=== PATIENT | female | born 1965 | race Caucasian/White ===

== ENCOUNTER 2017-02-04 15:15 | Emergency (ER) | payer OTHER ==
[~2017-02-04] VITALS: Ht 182.9 cm; Wt 83.9 kg
[~2017-02-04 15:15] MED LIST: ALPR2TAB97 PO; FERR325T28 PO; LEVE1000 PO; LEVO150T8 PO; OXYC15TA2 PO; WARF2.5T47 PO
--- NOTE | 2017-02-04 15:59 | NUR ---
DR GORE AT THE BEDSIDE FOR EVAL AND EXAM.
[2017-02-04 16:19] LABS: CALCIUM 9.4 mg/dL (8.5-10.1); CREATININE 0.8 mg/dL (0.6-1.3); POTASSIUM 4.7 mmol/L (3.5-5.1)
[2017-02-04 16:20] LABS: BASOPHILS % (AUTO) 0.4 % (0.0-2.0); EOSINOPHILS # (AUTO) 0.3 K/uL (0.0-0.7); HEMATOCRIT 28.8 % (37.0-47.0); HEMOGLOBIN 9.6 g/dL (12.0-16.0); LYMPHOCYTES # (AUTO) 2.8 K/uL (0.8-4.8); MEAN CORPUSCULAR HEMOGLOBIN 25.9 uug (27.0-31.0); MEAN CORPUSCULAR HGB CONC 33 g/dL (32.0-37.0); MEAN CORPUSCULAR VOLUME 77.8 fL (81.0-99.0); MONOCYTES # (AUTO) 0.4 K/uL (0.1-1.30); MONOCYTES % (AUTO) 6.7 % (0.0-11.0); NEUTROPHILS # (AUTO) 3.1 K/uL (1.8-8.9); NEUTROPHILS % (AUTO) 45.9 % (38.5-71.5); PLATELET COUNT (AUTO) 315 K/uL (150-450); RED BLOOD CELL COUNT(AUTO) 3.71 MIL/uL (4.20-5.40); RED CELL DISTRIBUTION WIDTH 18.5 % (11.5-14.5); WHITE BLOOD COUNT (AUTO) 6.6 K/uL (4.0-11.2)
[2017-02-04 16:25] LABS: ALBUMIN 3.5 g/dL (3.4-5.0); BILIRUBIN,DIRECT 0.1 mg/dL (0.0-0.2); BILIRUBIN,TOTAL 0.3 mg/dL (0.2-1.0); TOTAL PROTEIN, SERUM 7.3 g/dL (6.4-8.2)
[2017-02-04 16:47] LABS: ACANTHOCYTES FEW; ANISOCYTOSIS 2+; OVALOCYTES 1+; TEAR DROP CELLS FEW
--- NOTE | 2017-02-04 16:59 | NUR ---
Patient discharged to home in stable conditon. Written and verbal after care instructions given. Patient verbalizes understanding of instructions.
[2017-02-04 17:00] VITALS: BP 115/55
== END 2017-02-04 17:00 | disposition home or self-care (01) ==
LOC: ER 15:17
DX: R60.0 Localized edema (principal); R10.9 Unspecified abdominal pain; F19.10 Other psychoactive substance abuse, uncomplicated; E03.9 Hypothyroidism, unspecified; Z88.8 Allergy status to other drugs, medicaments and biological substances; Z88.1 Allergy status to other antibiotic agents; Z79.01 Long term (current) use of anticoagulants
CPT/HCPCS: 36415; 83690; 85025; A4663

== ENCOUNTER 2017-04-19 14:33 | Emergency (ER) | payer OTHER ==
[~2017-04-19] VITALS: Ht 182.9 cm; Wt 85.3 kg
--- NOTE | 2017-04-19 14:54 | NUR ---
Pt has recent hx of sz onset, recent trauma to mouth and jaw; had dental x-rays taken 04/16 and thinks she got infection, swelling in left lower part of mouth, c/o 08/25 pain. No other complaints, minimal distress noted.
--- NOTE | 2017-04-19 15:23 | NUR ---
Gave pt d/c instructions, verbalized understanding.
== END 2017-04-19 15:27 | disposition home or self-care (01) ==
LOC: ER 14:33
DX: K13.79 Other lesions of oral mucosa (principal); F41.9 Anxiety disorder, unspecified; E03.9 Hypothyroidism, unspecified; F19.10 Other psychoactive substance abuse, uncomplicated; Z88.1 Allergy status to other antibiotic agents; Z88.8 Allergy status to other drugs, medicaments and biological substances
CPT/HCPCS: 99281; A4663

== ENCOUNTER 2017-05-20 19:09 | Emergency (ER) | payer OTHER ==
[~2017-05-20] VITALS: Ht 182.9 cm; Wt 79.4 kg
[2017-05-20] MEDS ORDERED: RIVA20TA PO (19:20)
--- NOTE | 2017-05-20 19:43 | NUR ---
Patient discharged to home in stable conditon. Written and verbal after care instructions given. Patient verbalizes understanding of instructions.
== END 2017-05-20 19:45 | disposition home or self-care (01) ==
LOC: ER 19:10
DX: F41.9 Anxiety disorder, unspecified (principal); L97.829 Non-pressure chronic ulcer of other part of left lower leg with unspecified severity; E03.9 Hypothyroidism, unspecified; G89.4 Chronic pain syndrome; F11.20 Opioid dependence, uncomplicated; F13.20 Sedative, hypnotic or anxiolytic dependence, uncomplicated; Z88.1 Allergy status to other antibiotic agents; Z79.01 Long term (current) use of anticoagulants
CPT/HCPCS: A4663

== ENCOUNTER 2017-05-26 20:05 | Emergency (ER) | payer OTHER ==
[~2017-05-26] VITALS: Ht 182.9 cm; Wt 86.2 kg
[~2017-05-26 20:05] MED LIST changes: +RIVA20TA PO; -WARF2.5T47 PO
[2017-05-26] MEDS ORDERED: FLUCONAZOLE 100 MG TABLET PO ONE (20:30)
--- NOTE | 2017-05-26 20:37 | NUR ---
Patient discharged to home in stable conditon. Written and verbal after care instructions given. Patient verbalizes understanding of instructions.
[2017-05-26] MEDS ORDERED: FLUCONAZOLE 100 MG TABLET ONE (20:38)
== END 2017-05-26 20:38 | disposition home or self-care (01) ==
LOC: ER 20:06
DX: S70.362A Insect bite (nonvenomous), left thigh, initial encounter (principal); L08.9 Local infection of the skin and subcutaneous tissue, unspecified; E03.9 Hypothyroidism, unspecified; F41.9 Anxiety disorder, unspecified; G62.9 Polyneuropathy, unspecified; Z79.01 Long term (current) use of anticoagulants; D64.9 Anemia, unspecified; Z88.8 Allergy status to other drugs, medicaments and biological substances; Z88.1 Allergy status to other antibiotic agents; Z88.7 Allergy status to serum and vaccine; W57.XXXA Bitten or stung by nonvenomous insect and other nonvenomous arthropods, initial encounter; Y93.89 Activity, other specified; Y92.89 Other specified places as the place of occurrence of the external cause; Y99.8 Other external cause status
CPT/HCPCS: A4663

== ENCOUNTER 2017-11-23 14:45 | Inpatient (IN) | payer OTHER ==
[~2017-11-23] VITALS: Ht 184.2 cm; Wt 83.9 kg
[2017-11-23] MEDS ORDERED: VANCOMYCIN IV 1,000 MG in IV DEXTROSE 5% 250 ML IV ONE (15:15)
[2017-11-23] MEDS ORDERED: VANCOMYCIN IV 200 ML ONE (15:37)
--- NOTE | 2017-11-23 15:38 | NUR ---
PT IS IN ROOM #2A. DR GO EVALUATED THE PT.
[2017-11-23 15:55] LABS: BASOPHILS % (AUTO) 0.9 % (0.0-2.0); EOSINOPHILS # (AUTO) 0.3 K/uL (0.0-0.7); EOSINOPHILS % (AUTO) 6.4 % (0.0-7.0); HEMATOCRIT 30.4 % (31.2-41.9); HEMOGLOBIN 9.8 g/dL (10.9-14.3); LYMPHOCYTES # (AUTO) 1.7 K/uL (20.0-40.0); LYMPHOCYTES % (AUTO) 40.5 % (20.5-51.5); MEAN CORPUSCULAR HEMOGLOBIN 25.9 uug (24.7-32.8); MEAN CORPUSCULAR HGB CONC 32 g/dL (32.3-35.6); MEAN CORPUSCULAR VOLUME 80.4 fL (75.5-95.3); MONOCYTES # (AUTO) 0.3 K/uL (2.0-10.0); MONOCYTES % (AUTO) 7.5 % (0.0-11.0); NEUTROPHILS # (AUTO) 1.8 K/uL (1.8-8.9); NEUTROPHILS % (AUTO) 44.7 % (38.5-71.5); PLATELET COUNT (AUTO) 293 K/uL (179-408); RED BLOOD CELL COUNT(AUTO) 3.78 MIL/uL (3.63-4.92); WHITE BLOOD COUNT (AUTO) 4.1 K/uL (3.8-11.8)
[2017-11-23 16:02] LABS: CREATININE 1.1 mg/dL (0.6-1.3); POTASSIUM 4.2 mmol/L (3.5-5.1)
[2017-11-23 16:09] LABS: BILIRUBIN,DIRECT 0.1 mg/dL (0.0-0.2); BILIRUBIN,TOTAL 0.3 mg/dL (0.2-1.0); TOTAL PROTEIN, SERUM 7.3 g/dL (6.4-8.2)
[2017-11-23] MEDS ORDERED: LEVE1000 PO (18:24)
[2017-11-23] MEDS ORDERED: OXYC20TA58 PO (18:24)
[2017-11-23] MEDS ORDERED: FERR324T PO (18:24)
--- NOTE | 2017-11-23 18:33 | NUR ---
REPORT WAS GIVEN TO RN M/S-REHAB.
--- NOTE | 2017-11-23 18:52 | NUR ---
PT WAS TRANSFERED TO ROOM #123A REHABILITATION UNIT.
[2017-11-23] MEDS ORDERED: ALPRAZOLAM 0.5 MG TABLET PO PRN (19:15)
[2017-11-23 20:00] VITALS: BP 116/78
--- NOTE | 2017-11-23 20:00 | NUR ---
Seen pt. during rounds, walking to her bathroom. Assisted patient to the bathroom, able to void without BM. Vital signs taken and recorded. Helped patient back to bed. Breathing even and nonlabored. IV on both arms, intact and no signs of any infiltration. Safety measures provided. Placed call light within.
[2017-11-23] MEDS: ENOXAPARIN SODIUM 40 MG/0.4 ML DISP.SYRIN SQ SCH ×2 (21:00→21:19)
--- NOTE | 2017-11-23 21:00 | NUR ---
Pt. refused the lovenox saying she just took her maintenance dose of Coumadin 5mg this 7am. She also complained that Xanax 1mg is not enough for her, she usually takes 2mg. JULIA Jameson made aware. JULIA Jameson also ordered BLE Ultrasound.
[2017-11-23] MEDS: LEVETIRACETAM 500 MG TABLET PO SCH (21:17)
[2017-11-23] MEDS: OXYCODONE HCL 5 MG TABLET PO PRN (21:50)
--- NOTE | 2017-11-23 22:13 | NUR ---
PHARMACY CLINICAL NOTES (VANCOMYCIN DOSING) S: 52 YO FEMALE W/ DX OF CELLULITIS. MD ORDERED VANCOMYCIN O: BUN/SCR 8/1.1; WBC 4.1, TEMP 98.6 DOSING WT 160LBS A/P: PT RECEIVED VANCOMYCIN 1GM IN ER @ 15: 15(CONSIDER 1ST DOSE); WILL CONTINUE WITH VANCOMYCIN 1GM Q12H. PREDICTED PEAK 36 AND TROUGH OF 18.7; WILL CONTINUE MONITORING THE RENAL FXN AND WILL ORDER A TROUGH PRIOR TO 4TH DOSE AND ADJUST THE DOSE NECESSARY
[2017-11-23] MEDS ORDERED: ONDANSETRON INJ 8 MG in IV NORMAL SALINE 50 ML IV PRN (22:45)
[2017-11-24] MEDS ORDERED: Z GUARD REMEDY PASTE 57 GM TUBE TOP PRN (01:00)
[2017-11-24] MEDS ORDERED: HYDROCODONE/APAP 5-325MG TABLET PO PRN (01:00)
[2017-11-24] MEDS ORDERED: ZOLPIDEM 5 MG TABLET PO PRN (01:00)
[2017-11-24] MEDS ORDERED: ONDANSETRON 4 MG/2 ML VIAL IV PRN (01:00)
[2017-11-24] MEDS ORDERED: MAGNESIUM HYDROXIDE 30 ML LIQUID UDC PO PRN (01:00)
[2017-11-24] MEDS ORDERED: ACETAMINOPHEN 325 MG TABLET PO PRN (01:00)
[2017-11-24] MEDS: VANCOMYCIN IV 1 G in PREMIXED 0 EACH IV SCH ×2 (02:56→15:06)
[2017-11-24] MEDS: ONDANSETRON 4 MG/2 ML VIAL IV PRN ×3 (03:03→19:56)
[2017-11-24] MEDS ORDERED: ONDANSETRON 4 MG/2 ML VIAL ONE (03:07)
[2017-11-24 07:00] VITALS: BP 113/71
[2017-11-24] MEDS: LEVOTHYROXINE SODIUM 150 MCG TABLET PO SCH (07:01)
[2017-11-24 08:53] LABS: BASOPHILS % (AUTO) 0.8 % (0.0-2.0); EOSINOPHILS # (AUTO) 0.3 K/uL (0.0-0.7); EOSINOPHILS % (AUTO) 5.9 % (0.0-7.0); HEMATOCRIT 29.2 % (31.2-41.9); HEMOGLOBIN 9.5 g/dL (10.9-14.3); LYMPHOCYTES # (AUTO) 2.5 K/uL (20.0-40.0); LYMPHOCYTES % (AUTO) 53.4 % (20.5-51.5); MEAN CORPUSCULAR HEMOGLOBIN 26.4 uug (24.7-32.8); MEAN CORPUSCULAR HGB CONC 33 g/dL (32.3-35.6); MEAN CORPUSCULAR VOLUME 80.7 fL (75.5-95.3); MONOCYTES # (AUTO) 0.4 K/uL (2.0-10.0); MONOCYTES % (AUTO) 8.3 % (0.0-11.0); NEUTROPHILS # (AUTO) 1.5 K/uL (1.8-8.9); NEUTROPHILS % (AUTO) 31.6 % (38.5-71.5); PLATELET COUNT (AUTO) 275 K/uL (179-408); RED BLOOD CELL COUNT(AUTO) 3.62 MIL/uL (3.63-4.92); WHITE BLOOD COUNT (AUTO) 4.7 K/uL (3.8-11.8)
[2017-11-24] MEDS: FERROUS GLUCONATE 324 MG TABLET PO SCH (09:26)
[2017-11-24 09:28] LABS: CREATININE 1.1 mg/dL (0.6-1.3); POTASSIUM 4.5 mmol/L (3.5-5.1)
[2017-11-24] MEDS: OXYCODONE HCL 5 MG TABLET PO PRN ×2 (09:35→18:34)
[2017-11-24] MEDS: LEVETIRACETAM 500 MG TABLET PO SCH ×2 (10:12→21:45)
--- NOTE | 2017-11-24 11:11 | NUR ---
SBAR report received, board updated. Pt awake, alert, and oriented. Pt assessed, reports pain 10/10 located to knees and legs, TID 15mg pain medication administered per orders. Pt compliant with other routine medications, but requesting Xanax for anxiety which is only list as PRN at HS. notified, awaiting new orders. Pt requests PT, INR, and TSH labs be drawn to monitor current values. MD notified for this as well. Will follow up. Pt bed locked, in lowest position, and bed alarm on. Personal items and call light placed within reach, Pt reminded to utilize to meet all needs. Will continue to monitor.
[2017-11-24] MEDS: ALPRAZOLAM 0.5 MG TABLET PO PRN ×2 (11:48→21:53)
[2017-11-24 12:33] LABS: THYROID STIMULATING HORMONE 3.191 mIU/mL (0.358-3.740)
[2017-11-24] MEDS: PIPERACILLIN/TAZOBACTAM/D5W 50 ML IV SCH ×3 (13:14→23:58)
--- NOTE | 2017-11-24 14:09 | NUR ---
PHARMACY CLINICAL NOTES (VANCOMYCIN DOSING) S: 52 YO FEMALE W/ DX OF CELLULITIS. MD ORDERED VANCOMYCIN O: BUN/SCR 10/1.1; WBC 4.7, TEMP 98.6 DOSING WT 160LBS A/P: CONTINUE WITH VANCOMYCIN 1GM Q12H. PREDICTED PEAK 36 AND TROUGH OF 18.7; WILL CONTINUE MONITORING THE RENAL FXN AND WILL ORDER A TROUGH PRIOR TO 4TH DOSE(ORDERED FOR TOMORROW AT 0230) AND ADJUST THE DOSE NECESSARY
--- NOTE | 2017-11-24 16:37 | NUR ---
Pt seen by , new orders received. Both of Pt IV sites no longer patent. New IV started on right hand with a #20 simon. IV site on left forearm removed with end intact. Pt teaching provided on collecting both stool sample and clean catch urine specimens. Will continue to monitor.
[2017-11-24] MEDS ORDERED: OXYCODONE/APAP 5-325 MG TABLET PO PRN (17:00)
--- NOTE | 2017-11-24 17:05 | NUR ---
Pt urine sample and occult stool samples collected and sent to lab.
[2017-11-24 17:36] LABS: *BILIRUBIN,URIN NEGATIVE (NEGATIVE); *BLOOD, URINE Trace-intact (NEGATIVE); *CLARITY,URINE CLEAR (CLEAR); *COLOR,URINE YELLOW (YELLOW); *KETONES,URINE NEGATIVE (NEGATIVE); *PROTEIN,URINE NEGATIVE (NEGATIVE); *UROBILINOGEN,URINE 0.2 E.U./dl (NORMAL); LEUKOCYTE ESTERASE ,URINE NEGATIVE (NEGATIVE); NITRITE, URINE NEGATIVE (NEGATIVE); PH,URINE 7.5 (5.0-8.0); UGLUCOSE NEGATIVE (NEGATIVE)
[2017-11-24 17:41] LABS: BACTERIA,URINE FEW /HPF (NONE SEEN); RBC,URINE 0-3 /HPF (0-3); SQUAMOUS EPITHELIAL CELL,UR FEW /HPF (NONE SEEN); WBC,URINE 0-3 /HPF (0-3)
[2017-11-24 17:50] LABS: *OCCULT BLOOD STOOL NEGATIVE (NEGATIVE)
[2017-11-24] MEDS ORDERED: OXYCODONE HCL 20 MG TAB.SR.12H PO SCH (18:00)
--- NOTE | 2017-11-24 18:43 | NUR ---
Pt sitting comfortably in bed, assisted to restroom, voided x1. Vanco antibiotic finishing, Zosyn to be hung following completion. Pt reports pain 9/10 Oxycodone 15mg administered per PRN orders. All safety and comfort needs met. Call light and personal items within reach. Will continue to monitor and endorse to oncoming cage shift manager.
--- NOTE | 2017-11-24 19:50 | NUR ---
Received patient in bed, awake and alert. vital signs taken and recorded. IV heplock on R arm intact, secured with transparent dressing and no s/s of infiltration. no acute distress noted. fall precautions maintained. call leon within reach. will monitor patient.
[2017-11-24 20:00] VITALS: BP 99/60
[2017-11-24] MEDS: ENOXAPARIN SODIUM 40 MG/0.4 ML DISP.SYRIN SQ SCH (21:00)
[2017-11-24] MEDS ORDERED: ALPRAZOLAM 0.5 MG TABLET PO PRN (21:00)
[2017-11-24] MEDS: OXYCODONE HCL 20 MG TAB.SR.12H PO SCH (21:47)
[2017-11-24] MEDS ORDERED: ALPRAZOLAM 0.5 MG TABLET ONE (22:05)
[2017-11-25 03:32] LABS: BASOPHILS % (AUTO) 0.6 % (0.0-2.0); EOSINOPHILS # (AUTO) 0.2 K/uL (0.0-0.7); EOSINOPHILS % (AUTO) 5.6 % (0.0-7.0); HEMATOCRIT 27.6 % (31.2-41.9); LYMPHOCYTES # (AUTO) 2.1 K/uL (20.0-40.0); LYMPHOCYTES % (AUTO) 49.7 % (20.5-51.5); MEAN CORPUSCULAR HEMOGLOBIN 26.4 uug (24.7-32.8); MEAN CORPUSCULAR HGB CONC 33 g/dL (32.3-35.6); MEAN CORPUSCULAR VOLUME 80.4 fL (75.5-95.3); MONOCYTES # (AUTO) 0.3 K/uL (2.0-10.0); MONOCYTES % (AUTO) 8.3 % (0.0-11.0); NEUTROPHILS # (AUTO) 1.5 K/uL (1.8-8.9); NEUTROPHILS % (AUTO) 35.8 % (38.5-71.5); PLATELET COUNT (AUTO) 279 K/uL (179-408); RED BLOOD CELL COUNT(AUTO) 3.43 MIL/uL (3.63-4.92); WHITE BLOOD COUNT (AUTO) 4.1 K/uL (3.8-11.8)
[2017-11-25 03:44] LABS: BILIRUBIN,TOTAL 0.3 mg/dL (0.2-1.0); CREATININE 1.1 mg/dL (0.6-1.3); MAGNESIUM 1.5 mg/dL (1.8-2.4); PHOSPHOROUS 3.8 mg/dL (2.5-4.9); POTASSIUM 4.2 mmol/L (3.5-5.1); TOTAL PROTEIN, SERUM 6.3 g/dL (6.4-8.2)
[2017-11-25 04:00] VITALS: BP 107/69
[2017-11-25] MEDS: VANCOMYCIN IV 1 G in PREMIXED 0 EACH IV SCH ×2 (04:15→16:45)
[2017-11-25] MEDS: ONDANSETRON 4 MG/2 ML VIAL IV PRN ×3 (04:16→22:18)
[2017-11-25] MEDS: PIPERACILLIN/TAZOBACTAM/D5W 50 ML IV SCH ×3 (06:15→18:18)
[2017-11-25] MEDS: LEVOTHYROXINE SODIUM 150 MCG TABLET PO SCH (06:18)
[2017-11-25] MEDS: PANTOPRAZOLE SODIUM 40 MG TABLET.DR PO SCH (06:18)
[2017-11-25 08:47] VITALS: BP 95/60
[2017-11-25] MEDS ORDERED: WARFARIN SODIUM 5 MG TABLET PO SCH ×3 (09:00→17:00)
[2017-11-25] MEDS: LEVETIRACETAM 500 MG TABLET PO SCH ×2 (09:46→21:06)
[2017-11-25] MEDS: FERROUS GLUCONATE 324 MG TABLET PO SCH (09:46)
[2017-11-25] MEDS: OXYCODONE HCL 20 MG TAB.SR.12H PO SCH ×2 (09:47→21:07)
[2017-11-25] MEDS ORDERED: PHYTONADIONE 10 MG/1 ML AMPUL SQ ONE (10:45)
[2017-11-25] MEDS: MAGNESIUM SULFATE/D5W 100 ML IV SCH ×2 (11:45→16:50)
--- NOTE | 2017-11-25 14:03 | NUR ---
PHARMACY CLINICAL NOTES (VANCOMYCIN DOSING) S: 52 YO FEMALE W/ DX OF CELLULITIS. O: BUN/SCR 12/1.1; WBC 4.1, TEMP 98.5 DOSING WT 160LBS A/P:TROUGH LEVEL WAS OBTAINED @ 0300 AM (INSTEAD OF 02:30)= 13.2. SINCE RENAL FXN AND ALL OTHER CLINICAL INDICATORS(WBC, TEMP) ARE STABLE WILL CONTINUE WITH THE SAME DOSE OF VANCO 1GM Q12H. WILL CONTINUE MONITORING AND ADJUST THE DOSE NECESSARY
[2017-11-25] MEDS: OXYCODONE HCL 5 MG TABLET PO PRN (17:27)
--- NOTE | 2017-11-25 19:30 | NUR ---
patient in bed, laying comfortably. Vital signs taken and recorded, WNL. Breathing even and nonlabored. IV on L FA, intact and no signs of any infiltration. Safety measures provided. Placed call light within. will monitor the patient.
[2017-11-25 20:00] VITALS: BP 109/74
--- NOTE | 2017-11-25 21:10 | NUR ---
Seen patient up from bed, standing at bedside. Instructed patient to go back to bed, for she might be out of balance but refused. She said she wanted to stand for while because she was in her bed laying and sitting for a long time today. Informed patient to use the walker for her safety but refused because she said she's not comfortable using it. Placed the bedside table closer to her so she can hang from the table while up from bed, agreed and said she's okay standing up. Stayed in the room for while making sure she's safe. Will continue to monitor the patient.
[2017-11-25] MEDS: ALPRAZOLAM 0.5 MG TABLET PO PRN (22:17)
[2017-11-26] MEDS: PIPERACILLIN/TAZOBACTAM/D5W 50 ML IV SCH ×4 (00:02→18:12)
[2017-11-26] MEDS: VANCOMYCIN IV 1 G in PREMIXED 0 EACH IV SCH ×2 (03:11→12:46)
[2017-11-26 04:00] VITALS: BP 112/81
[2017-11-26] MEDS: ONDANSETRON 4 MG/2 ML VIAL IV PRN (04:36)
[2017-11-26] MEDS: OXYCODONE HCL 5 MG TABLET PO PRN ×2 (04:48→15:32)
[2017-11-26] MEDS: LEVOTHYROXINE SODIUM 150 MCG TABLET PO SCH ×2 (06:27→09:10)
[2017-11-26] MEDS: PANTOPRAZOLE SODIUM 40 MG TABLET.DR PO SCH (06:27)
[2017-11-26 08:41] LABS: BASOPHILS % (AUTO) 0.7 % (0.0-2.0); EOSINOPHILS # (AUTO) 0.2 K/uL (0.0-0.7); EOSINOPHILS % (AUTO) 5.4 % (0.0-7.0); HEMATOCRIT 27.1 % (31.2-41.9); LYMPHOCYTES % (AUTO) 42.8 % (20.5-51.5); MEAN CORPUSCULAR HEMOGLOBIN 26.4 uug (24.7-32.8); MEAN CORPUSCULAR HGB CONC 33 g/dL (32.3-35.6); MEAN CORPUSCULAR VOLUME 79.7 fL (75.5-95.3); MONOCYTES # (AUTO) 0.4 K/uL (2.0-10.0); MONOCYTES % (AUTO) 8.6 % (0.0-11.0); NEUTROPHILS % (AUTO) 42.5 % (38.5-71.5); PLATELET COUNT (AUTO) 300 K/uL (179-408); WHITE BLOOD COUNT (AUTO) 4.6 K/uL (3.8-11.8)
[2017-11-26 08:48] VITALS: BP 121/83
[2017-11-26] MEDS: OXYCODONE HCL 20 MG TAB.SR.12H PO SCH ×2 (09:10→20:47)
[2017-11-26] MEDS: FERROUS GLUCONATE 324 MG TABLET PO SCH (09:10)
[2017-11-26 09:19] LABS: BILIRUBIN,TOTAL 0.4 mg/dL (0.2-1.0); CREATININE 1.2 mg/dL (0.6-1.3); MAGNESIUM 1.8 mg/dL (1.8-2.4); PHOSPHOROUS 4.2 mg/dL (2.5-4.9); POTASSIUM 3.6 mmol/L (3.5-5.1); TOTAL PROTEIN, SERUM 6.4 g/dL (6.4-8.2)
[2017-11-26] MEDS ORDERED: PNEUMOCOCCAL 23-VAL P-SAC VAC 0.5 ML VIAL IM ONE (09:45)
[2017-11-26] MEDS ORDERED: INFLUENZA VACCINE 2017-2018 0.5 ML DISP.SYRIN IM ONE (09:45)
--- NOTE | 2017-11-26 12:26 | NUR ---
PHARMACY CLINICAL NOTES (VANCOMYCIN DOSING) S: 52 YO FEMALE W/ DX OF CELLULITIS. O: BUN/SCR 12/1.1; WBC 4.6, TEMP 98.2 DOSING WT 160LBS TROUGH 13.2 11/25 @ 0300 (DRAWN LATE) A/P: RENAL FUNCTION STABLE, WILL CONTINUE WITH THE SAME DOSE OF VANCO 1GM Q12H. WILL CONTINUE MONITORING AND IF RENAL FUNCTION WERE TO CHANGE, ADJUST NEEDED. WILL FOLLOW
[2017-11-26] MEDS: LEVETIRACETAM 500 MG TABLET PO SCH ×2 (12:45→20:48)
[2017-11-26] MEDS ORDERED: POTASSIUM CHLORIDE 10 MEQ CAPSULE.SA PO SCH (15:00)
[2017-11-26] MEDS ORDERED: FUROSEMIDE 20 MG TABLET PO SCH (15:00)
[2017-11-26] MEDS: ALPRAZOLAM 0.5 MG TABLET PO PRN ×2 (15:49→20:47)
[2017-11-26] MEDS ORDERED: POTA10CA43 PO (16:01)
[2017-11-26] MEDS ORDERED: OXYC5TAB3 PO (16:01)
[2017-11-26] MEDS ORDERED: LEVE500T9 PO (16:01)
[2017-11-26] MEDS ORDERED: PIPE3.376 IV (16:01)
[2017-11-26] MEDS ORDERED: ONDA4TAB5 PO (16:01)
[2017-11-26] MEDS ORDERED: MAGN400O6 PO (16:01)
[2017-11-26] MEDS ORDERED: ALPR0.5T PO ×2 (16:01)
[2017-11-26] MEDS ORDERED: WARF2TAB57 PO (16:01)
[2017-11-26] MEDS ORDERED: ACET325T53 PO (16:01)
[2017-11-26] MEDS ORDERED: LEVO150T PO (16:01)
[2017-11-26] MEDS ORDERED: PANT40TA2 PO (16:01)
[2017-11-26] MEDS ORDERED: HYDR-3326 PO (16:01)
[2017-11-26] MEDS ORDERED: Oxycodone Sr PO (16:01)
[2017-11-26] MEDS ORDERED: RXVAN XX (16:01)
[2017-11-26] MEDS ORDERED: FURO20TA4 PO (16:01)
[2017-11-26] MEDS ORDERED: ZOLP5TAB8 PO (16:01)
[2017-11-26] MEDS ORDERED: FERR324T PO (16:01)
[2017-11-26] MEDS ORDERED: WARFARIN SODIUM 2 MG TABLET PO SCH (17:00)
--- NOTE | 2017-11-26 18:50 | NUR ---
D/C NOTE DISCHARGING TO [facility] [address] [facility] [address]. REPORT CALLED TO LUIS [phone]. SHE IS DUE FOR P/U AT 2029.
--- NOTE | 2017-11-26 21:10 | NUR ---
Patient discharged to [facility] at 2109 via [facility] ambulance service alert and oriented x 4 in no acute distress, vitals stable, belonging list done upon discharge and patient complained of losing one long sleeve black shirt with words written on it, anni's charge nurse and pathology supervisor both were informed of pt complaint of missing item. No belonging list found in chart on admission to verify item is missing. Patient upset and declined staff to take pictures of bilateral lower extremities. No wounds or redness noted, just +3 edema to both lower legs. Report given to electrifier operator Lev from [facility] ambulance service.
[2017-11-27] MEDS ORDERED: LEVOTHYROXINE SODIUM 150 MCG TABLET PO SCH (07:00)
== END 2017-11-26 21:10 | DRG 603 ==
LOC: ER 14:45 → MEDSURG1 18:42
PROVIDERS: ATTEND Nurse Practitioner Acute Care
DX: L03.116 Cellulitis of left lower limb (principal); D68.2 Hereditary deficiency of other clotting factors; E44.0 Moderate protein-calorie malnutrition; L03.115 Cellulitis of right lower limb; Z88.1 Allergy status to other antibiotic agents; Z88.8 Allergy status to other drugs, medicaments and biological substances; R60.0 Localized edema; G89.4 Chronic pain syndrome; D64.9 Anemia, unspecified; E03.9 Hypothyroidism, unspecified; K21.9 Gastro-esophageal reflux disease without esophagitis; G25.0 Essential tremor; E83.42 Hypomagnesemia; R09.89 Other specified symptoms and signs involving the circulatory and respiratory systems; Z68.24 Body mass index [BMI] 24.0-24.9, adult; Z86.718 Personal history of other venous thrombosis and embolism; Z79.01 Long term (current) use of anticoagulants; Z87.81 Personal history of (healed) traumatic fracture; F41.9 Anxiety disorder, unspecified; F32.9 Major depressive disorder, single episode, unspecified; G40.909 Epilepsy, unspecified, not intractable, without status epilepticus; M17.0 Bilateral primary osteoarthritis of knee; M25.462 Effusion, left knee; M25.461 Effusion, right knee; G62.9 Polyneuropathy, unspecified; R51 Headache
CPT/HCPCS: 36415; 71045; 73700; 83550; 83605; 83690; 83735; 84100; 84443; 85025; 85610; 85730; 87040; 87086; 93005; A4663; J1650; J2405; J2543; J3370; J3430; J3475; J3490; J7040; J7042; J7050

== ENCOUNTER 2017-12-10 12:44 | Inpatient (IN) | payer OTHER ==
[~2017-12-10] VITALS: Ht 185.4 cm; Wt 81.6 kg
[~2017-12-10 12:44] MED LIST changes: +ACET325T53 PO; +ALPR0.5T PO; -ALPR2TAB97 PO; +FERR324T PO; -FERR325T28 PO; +FURO20TA4 PO; +HYDR-3326 PO; -LEVE1000 PO; +LEVE500T9 PO; +LEVO150T PO; -LEVO150T8 PO; +MAGN400O6 PO; +ONDA4TAB5 PO; -OXYC15TA2 PO; +OXYC5TAB3 PO; +Oxycodone Sr PO; +PANT40TA2 PO; +PIPE3.376 IV; +POTA10CA43 PO; -RIVA20TA PO; +RXVAN XX; +WARF2TAB57 PO; +ZOLP5TAB8 PO
--- NOTE | 2017-12-10 13:10 | NUR ---
DR AKERS AT THE BEDSIDE FOR EVAL AND EXAM.
[2017-12-10] MEDS ORDERED: IV NORMAL SALINE 1000 ML BAG IV ONE (13:30)
[2017-12-10 14:28] LABS: BASOPHILS % (AUTO) 0.7 % (0.0-2.0); EOSINOPHILS % (AUTO) 1.3 % (0.0-7.0); HEMATOCRIT 29.7 % (31.2-41.9); HEMOGLOBIN 9.8 g/dL (10.9-14.3); LYMPHOCYTES # (AUTO) 1.2 K/uL (20.0-40.0); LYMPHOCYTES % (AUTO) 32.5 % (20.5-51.5); MEAN CORPUSCULAR HEMOGLOBIN 26.1 uug (24.7-32.8); MEAN CORPUSCULAR HGB CONC 33 g/dL (32.3-35.6); MEAN CORPUSCULAR VOLUME 79.4 fL (75.5-95.3); MONOCYTES # (AUTO) 0.3 K/uL (2.0-10.0); MONOCYTES % (AUTO) 8.4 % (0.0-11.0); NEUTROPHILS # (AUTO) 2.1 K/uL (1.8-8.9); NEUTROPHILS % (AUTO) 57.1 % (38.5-71.5); PLATELET COUNT (AUTO) 187 K/uL (179-408); RED BLOOD CELL COUNT(AUTO) 3.75 MIL/uL (3.63-4.92); WHITE BLOOD COUNT (AUTO) 3.7 K/uL (3.8-11.8)
[2017-12-10 14:38] LABS: POTASSIUM 3.5 mmol/L (3.5-5.1)
[2017-12-10 14:51] LABS: BILIRUBIN,DIRECT 0.1 mg/dL (0.0-0.2); BILIRUBIN,TOTAL 0.3 mg/dL (0.2-1.0); TOTAL PROTEIN, SERUM 6.8 g/dL (6.4-8.2)
[2017-12-10] MEDS ORDERED: LEVOFLOXACIN 750 MG/D5W 150 ML PIGGYBACK IV ONE (15:00)
[2017-12-10] MEDS ORDERED: PIPERACILLIN SODIUM/TAZOBACTAM 4.5 G in IV DEXTROSE 5% 50 ML IV SCH (15:00)
--- NOTE | 2017-12-10 15:08 | NUR ---
MRSA COLLECTED AND SENT TO LAB.
[2017-12-10] MEDS ORDERED: PIPERACILLIN/TAZO 4.5 GM VIAL IV ONE ×2 (15:20→23:06)
[2017-12-10] MEDS ORDERED: LEVOFLOXACIN 750MG/D5W 150 ML IV ONE (15:21)
--- NOTE | 2017-12-10 15:25 | NUR ---
ASSISST TO BEDSIDE COMMODE, URINE COLLECTED AND SENT TO LAB.
[2017-12-10] MEDS ORDERED: FERR324T PO (15:29)
[2017-12-10] MEDS ORDERED: OXYC20TA58 PO (15:29)
[2017-12-10] MEDS ORDERED: ALPR2TAB97 PO (15:29)
[2017-12-10] MEDS ORDERED: LEVE1000 PO (15:29)
[2017-12-10] MEDS ORDERED: LEVO150T8 PO (15:29)
[2017-12-10] MEDS ORDERED: WARF1TAB2 PO (15:29)
[2017-12-10] MEDS ORDERED: OXYC15TA2 PO (15:29)
[2017-12-10 15:37] LABS: *BILIRUBIN,URIN NEGATIVE (NEGATIVE); *BLOOD, URINE Trace-intact (NEGATIVE); *CLARITY,URINE CLEAR (CLEAR); *COLOR,URINE YELLOW (YELLOW); *KETONES,URINE NEGATIVE (NEGATIVE); *PROTEIN,URINE NEGATIVE (NEGATIVE); *UROBILINOGEN,URINE 0.2 E.U./dl (NORMAL); LEUKOCYTE ESTERASE ,URINE NEGATIVE (NEGATIVE); NITRITE, URINE NEGATIVE (NEGATIVE); PH,URINE 5.5 (5.0-8.0); UGLUCOSE NEGATIVE (NEGATIVE)
[2017-12-10 15:42] LABS: BACTERIA,URINE FEW /HPF (NONE SEEN); RBC,URINE 0-3 /HPF (0-3); SQUAMOUS EPITHELIAL CELL,UR FEW /HPF (NONE SEEN); WBC,URINE 0-3 /HPF (0-3)
--- NOTE | 2017-12-10 15:57 | NUR ---
PT ARRIVED FROM ER ON A GURNEY. PT CALM AND COOPERATIVE, AOX3, STABLE, A LITTLE LETHARGIC STATING " I AM A LITTLE TIRED". ROSITA CONTINUED FROM ER. IV INTACT AND WORKING AT THIS TIME. CONTINUE TO MONITOR.
[2017-12-10 16:33] VITALS: BP 93/44
--- NOTE | 2017-12-10 16:35 | NUR ---
PT IV INFILTRATED, NEW IV 22 GAUGE ON RIGHT WRIST, LEVAQUIN CONTINUED. CONTINUE TO MONITOR PT.
--- NOTE | 2017-12-10 19:30 | NUR ---
pt hyperverbal, irritable, no signs of respiratory distress, lethargic. continue to monitor pt. IV intact. pt agreeable with plan of care.
[2017-12-10 20:36] VITALS: BP 92/64
[2017-12-10] MEDS ORDERED: LACT10SO PO (20:56)
[2017-12-10] MEDS ORDERED: MAGN400O6 PO (20:56)
[2017-12-10] MEDS ORDERED: ACET-2154 PO (20:56)
[2017-12-10] MEDS ORDERED: PANT40TA2 PO (20:56)
[2017-12-10] MEDS ORDERED: ALPR1TAB7 PO (20:56)
[2017-12-10] MEDS ORDERED: GABA-534 PO (20:56)
[2017-12-10] MEDS ORDERED: HYDR-3326 PO (21:29)
[2017-12-10] MEDS ORDERED: HYDROCODONE/APAP 5-325MG TABLET PO PRN (22:15)
[2017-12-10] MEDS ORDERED: Medication Not On Formulary EA (Lactulose (Duphalac) 30 ML) PO PRN (22:15)
[2017-12-10] MEDS ORDERED: MAGNESIUM HYDROXIDE 30 ML LIQUID UDC PO PRN ×2 (22:15)
[2017-12-10] MEDS: GABAPENTIN 300 MG CAPSULE PO SCH (22:15)
[2017-12-10] MEDS ORDERED: ALPRAZOLAM PO SCH (22:15)
[2017-12-10] MEDS ORDERED: CEFTRIAXONE 1 G in IV DEXTROSE 5% 50 ML IV SCH (22:15)
[2017-12-10] MEDS ORDERED: WARFARIN SODIUM 3 MG TABLET PO ONE (22:45)
[2017-12-10] MEDS ORDERED: CEFTRIAXONE 1 G VIAL ONE (23:05)
[2017-12-10] MEDS: OXYCODONE HCL 20 MG TAB.SR.12H PO SCH (23:06)
[2017-12-10] MEDS ORDERED: GABAPENTIN 300 MG CAPSULE ONE (23:06)
[2017-12-10] MEDS ORDERED: OXYCODONE HCL 20 MG TAB.SR.12H PO ONE (23:07)
[2017-12-10] MEDS ORDERED: WARFARIN SODIUM 3 MG TABLET ONE (23:11)
--- NOTE | 2017-12-10 23:19 | NUR ---
Per MD order, administering 3 mg PO Coumadin, Lot [id number] expiration date of 08-16-2018 and Ceftriazone 1 gram [facility] [id number] IV in D5.
[2017-12-11 00:11] VITALS: BP 91/59
[2017-12-11 04:00] VITALS: BP 90/58
[2017-12-11] MEDS ORDERED: LACTULOSE 20 G/30 ML LIQUID UDC PO PRN (07:15)
[2017-12-11] MEDS: PANTOPRAZOLE SODIUM 40 MG TABLET.DR PO SCH (08:30)
[2017-12-11] MEDS: LEVOTHYROXINE SODIUM 150 MCG TABLET PO SCH (08:30)
[2017-12-11] MEDS: GABAPENTIN 300 MG CAPSULE PO SCH ×4 (08:31→17:00)
[2017-12-11] MEDS: LEVETIRACETAM 500 MG TABLET PO SCH ×2 (08:31→20:10)
[2017-12-11] MEDS: FERROUS GLUCONATE 324 MG TABLET PO SCH (08:31)
[2017-12-11] MEDS: OXYCODONE HCL 20 MG TAB.SR.12H PO SCH ×2 (08:33→20:09)
--- NOTE | 2017-12-11 08:43 | NUR ---
Client refused Neurontin. Offered three times and advice her on the risks and benefits but still refuses. Compliant with her other morning medications.
[2017-12-11] MEDS: ALPRAZOLAM 0.5 MG TABLET PO PRN ×2 (08:48→17:22)
--- NOTE | 2017-12-11 09:21 | NUR ---
Refused linens to be changed, stating not to touch her linens and doesn't see anything wrong with them
--- NOTE | 2017-12-11 09:24 | NUR ---
Physical Therapy consult taking place. Able to ambulate with no apparent signs and symptoms of discomfort, distress or SOB. Able to walk shelter down the hallway with the assistance of a walker and one PT.
[2017-12-11] MEDS ORDERED: ALBUTEROL SULFATE 2.5 MG/3 ML NEBU NEB PRN (10:00)
[2017-12-11] MEDS ORDERED: IPRATROPIUM BROMIDE 0.5 MG/2.5 ML NEBU NEB PRN (10:00)
[2017-12-11 10:57] LABS: BASOPHILS % (AUTO) 0.7 % (0.0-2.0); EOSINOPHILS # (AUTO) 0.2 K/uL (0.0-0.7); EOSINOPHILS % (AUTO) 8.4 % (0.0-7.0); HEMATOCRIT 28.2 % (31.2-41.9); HEMOGLOBIN 9.3 g/dL (10.9-14.3); LYMPHOCYTES # (AUTO) 1.5 K/uL (20.0-40.0); LYMPHOCYTES % (AUTO) 52.5 % (20.5-51.5); MEAN CORPUSCULAR HEMOGLOBIN 26.2 uug (24.7-32.8); MEAN CORPUSCULAR HGB CONC 33 g/dL (32.3-35.6); MEAN CORPUSCULAR VOLUME 79.3 fL (75.5-95.3); MONOCYTES # (AUTO) 0.2 K/uL (2.0-10.0); MONOCYTES % (AUTO) 7.4 % (0.0-11.0); NEUTROPHILS # (AUTO) 0.9 K/uL (1.8-8.9); PLATELET COUNT (AUTO) 171 K/uL (179-408); RED BLOOD CELL COUNT(AUTO) 3.56 MIL/uL (3.63-4.92); WHITE BLOOD COUNT (AUTO) 2.9 K/uL (3.8-11.8)
[2017-12-11] MEDS ORDERED: LEVOFLOXACIN 500 MG/D5W 500 MG in PREMIXED 1 EACH IV SCH (11:00)
[2017-12-11 11:15] LABS: BILIRUBIN,TOTAL 0.2 mg/dL (0.2-1.0); CREATININE 0.8 mg/dL (0.6-1.3); MAGNESIUM 1.6 mg/dL (1.8-2.4); PHOSPHOROUS 3.3 mg/dL (2.5-4.9); POTASSIUM 3.6 mmol/L (3.5-5.1); TOTAL PROTEIN, SERUM 6.6 g/dL (6.4-8.2)
[2017-12-11 11:34] VITALS: BP 88/53
[2017-12-11] MEDS ORDERED: IV NORMAL SALINE 500 ML IV ONE (12:15)
[2017-12-11 12:24] VITALS: BP 108/68
--- NOTE | 2017-12-11 12:30 | NUR ---
Pharmacy aware of Levofloxacin not in the med room.
--- NOTE | 2017-12-11 12:32 | NUR ---
One time bolus NS of 500ml given at 250cc/hr due to decrease BP, 88/53 and 80/47
--- NOTE | 2017-12-11 13:04 | NUR ---
Client refused Neurontin, stating she is not taking it
--- NOTE | 2017-12-11 13:34 | NUR ---
Levofloxacin given, went down to pick it from pharmacy
[2017-12-11] MEDS ORDERED: GUAIFENESIN/DEXTROMETHORPHAN 5 ML UDC PO PRN (15:15)
[2017-12-11] MEDS ORDERED: MAGNESIUM SULFATE/D5W 100 ML IV SCH (15:15)
[2017-12-11 15:26] VITALS: BP 100/60
[2017-12-11] MEDS: ONDANSETRON 4 MG/2 ML VIAL IV PRN (15:37)
--- NOTE | 2017-12-11 15:59 | NUR ---
Right forearm IV removed due to noting bruising around the area. Increased bleeding time noted than normal. Ten minute pressure added to area of removal site. New IV started on the left hand. No apparent signs and symptoms of pain. Tolerated procedure well
[2017-12-11] MEDS: ENOXAPARIN SODIUM 40 MG/0.4 ML DISP.SYRIN SQ SCH (16:10)
--- NOTE | 2017-12-11 16:10 | NUR ---
Client stated being uncomfortable with the new IV on the left hand. Assessed site with no apparent complication. Client stated pain around thumb area and a warm pack applied as request by client. Noted it was safe to apply warm pack. No s/s of leaking, infiltration, or bruising around IV site.
--- NOTE | 2017-12-11 17:10 | NUR ---
Stopped the NS bolus infusion, client c/o of pain around the IV site. Ask the charge nurse to assess IV site since no apparent s/s of malfunction noted. No leaking, no infiltration noted, no bruising, no redness, no heat radiating from site. 400cc infused
--- NOTE | 2017-12-11 17:28 | NUR ---
Client refused to take Neurontin
--- NOTE | 2017-12-11 17:29 | NUR ---
Gave client a cold pack upon client's request for placement on the left hand
--- NOTE | 2017-12-11 18:58 | NUR ---
Relayed message to REAL ESTATE TRANSACTION COORDINATOR about the client's concern of wanting a Xanax order of 1mg during the day instead of 0.5mg of Xanax PRN Q8 HRS
[2017-12-11] MEDS: IPRATROPIUM BROMIDE 0.5 MG/2.5 ML NEBU NEB SCH (19:30)
[2017-12-11] MEDS: ALBUTEROL SULFATE 2.5 MG/3 ML NEBU NEB SCH (19:30)
[2017-12-11 20:00] VITALS: BP 104/72
[2017-12-11] MEDS: ALPRAZOLAM 0.5 MG TABLET PO SCH (20:10)
[2017-12-11] MEDS ORDERED: CEFTRIAXONE 1 G in IV DEXTROSE 5% 50 ML IV SCH (21:00)
--- NOTE | 2017-12-11 21:00 | NUR ---
Awake alert & oriented, anxious & hyperverbal. No resp distress noted but c/o lower ext discomfort. Encouraged to wash her face & brush her teeth. Patient cooperative w/ care & treatment. Sponge bath provided, complete bed linen change initiated. Routine night meds Xanax 2mg & Oxycontin p.o given & offered night snacks. Patient tolerated. Kept comfortable.
--- NOTE | 2017-12-11 23:00 | NUR ---
Patient asleep. Tele NSR.
[2017-12-12] VITALS: BP 106/73
[2017-12-12] MEDS: ALPRAZOLAM 0.5 MG TABLET PO PRN (03:13)
[2017-12-12 04:00] VITALS: BP 102/57
--- NOTE | 2017-12-12 04:00 | NUR ---
HHN TX NOT GIVEN. NO ORDER RECEIVED IN RESPIRATORY DEPARTMENT. PT WILL RECEIVE TX ON NEXT SCHEDULED TIME.
[2017-12-12] MEDS: PANTOPRAZOLE SODIUM 40 MG TABLET.DR PO SCH (06:02)
[2017-12-12] MEDS: LEVOTHYROXINE SODIUM 150 MCG TABLET PO SCH (06:02)
--- NOTE | 2017-12-12 07:10 | NUR ---
Received report from caustic cresylate shift superintendent nurse, patient in bed awake, hyperverbal and upset about not being able to sleep last night. All needs met, bed in low position, side rails up x2. patient complaining of being cold.
[2017-12-12 07:26] LABS: BASOPHILS % (AUTO) 0.8 % (0.0-2.0); EOSINOPHILS # (AUTO) 0.2 K/uL (0.0-0.7); EOSINOPHILS % (AUTO) 8.5 % (0.0-7.0); HEMATOCRIT 30.4 % (31.2-41.9); HEMOGLOBIN 10.1 g/dL (10.9-14.3); LYMPHOCYTES # (AUTO) 1.6 K/uL (20.0-40.0); LYMPHOCYTES % (AUTO) 56.5 % (20.5-51.5); MEAN CORPUSCULAR HEMOGLOBIN 26.4 uug (24.7-32.8); MEAN CORPUSCULAR HGB CONC 33 g/dL (32.3-35.6); MEAN CORPUSCULAR VOLUME 79.6 fL (75.5-95.3); MONOCYTES # (AUTO) 0.3 K/uL (2.0-10.0); MONOCYTES % (AUTO) 11.8 % (0.0-11.0); NEUTROPHILS # (AUTO) 0.6 K/uL (1.8-8.9); NEUTROPHILS % (AUTO) 22.4 % (38.5-71.5); PLATELET COUNT (AUTO) 174 K/uL (179-408); RED BLOOD CELL COUNT(AUTO) 3.82 MIL/uL (3.63-4.92); THYROID STIMULATING HORMONE 2.385 mIU/mL (0.358-3.740); WHITE BLOOD COUNT (AUTO) 2.8 K/uL (3.8-11.8)
[2017-12-12] MEDS: ALBUTEROL SULFATE 2.5 MG/3 ML NEBU NEB SCH ×3 (07:32→19:40)
[2017-12-12] MEDS: IPRATROPIUM BROMIDE 0.5 MG/2.5 ML NEBU NEB SCH ×3 (07:32→19:39)
[2017-12-12 08:24] LABS: BAND % (MANUAL) 3 % (0-10); EOSINOPHILS % (MANUAL) 9 % (0-8); LYMPHOCYTES % (MANUAL) 55 % (20-40); MONOCYTES % (MANUAL) 12 % (2-10); NEUTROPHILS % (MANUAL) 21 % (42-75)
[2017-12-12] MEDS: FERROUS GLUCONATE 324 MG TABLET PO SCH (08:26)
[2017-12-12] MEDS: LEVETIRACETAM 500 MG TABLET PO SCH ×2 (08:26→20:32)
[2017-12-12] MEDS: GABAPENTIN 300 MG CAPSULE PO SCH ×3 (08:26→17:00)
[2017-12-12] MEDS: OXYCODONE HCL 20 MG TAB.SR.12H PO SCH ×2 (08:27→20:31)
[2017-12-12] MEDS: ENOXAPARIN SODIUM 40 MG/0.4 ML DISP.SYRIN SQ SCH (08:39)
[2017-12-12 09:03] LABS: BILIRUBIN,TOTAL 0.2 mg/dL (0.2-1.0); CREATININE 0.9 mg/dL (0.6-1.3); MAGNESIUM 1.9 mg/dL (1.8-2.4); PHOSPHOROUS 3.6 mg/dL (2.5-4.9)
[2017-12-12] MEDS: PIPERACILLIN/TAZOBACTAM/D5W 50 ML IV SCH ×2 (11:23→17:09)
[2017-12-12 11:58] VITALS: BP 97/59
[2017-12-12] MEDS ORDERED: IV NS 1000 ML 1,000 ML IV PRN (14:15)
[2017-12-12 15:36] VITALS: BP 93/56
[2017-12-12] MEDS: WARFARIN SODIUM 3 MG TABLET PO SCH (17:09)
--- NOTE | 2017-12-12 18:47 | NUR ---
Patient has had occasional outbursts of anger throughout the day when she was not sleeping. All needs met, patient is currently sleeping, no evidence of distress noted, bed in low position, side rails up x2. Patient was seen by Dr. Jacobs (cardio), and by Patricia, and both had extensive conversations with her. Patient continues to say that she has not been seen by a doctor.
[2017-12-12 20:29] VITALS: BP 123/81
[2017-12-12] MEDS: ONDANSETRON 4 MG/2 ML VIAL IV PRN (20:30)
[2017-12-12] MEDS: ALPRAZOLAM 0.5 MG TABLET PO SCH (20:31)
--- NOTE | 2017-12-12 22:00 | NUR ---
Patient in the bathroom, just had extra large bm, hard stool noted. Stool sample sent to the lab for stool OB test.
[2017-12-12 23:48] LABS: *OCCULT BLOOD STOOL NEGATIVE (NEGATIVE)
[2017-12-13] MEDS: PIPERACILLIN/TAZOBACTAM/D5W 50 ML IV SCH ×5 (01:18→22:30)
[2017-12-13] MEDS: ALPRAZOLAM 0.5 MG TABLET PO PRN (04:01)
[2017-12-13 06:04] VITALS: BP 110/73
[2017-12-13] MEDS: LEVOTHYROXINE SODIUM 150 MCG TABLET PO SCH (07:11)
[2017-12-13] MEDS: PANTOPRAZOLE SODIUM 40 MG TABLET.DR PO SCH (07:11)
--- NOTE | 2017-12-13 07:20 | NUR ---
RECEIVED REPORT FROM HAT STOCK LAMINATING MACHINE OPERATOR NURSE, PATIENT IS AWAKE, NO EVIDENCE OF DISTRESS NOTED, BED IN LOW POSITION, SIDE RAILS UP X2. PATIENT IS CRACKING JOKES AND APPEARS TO BE IN GOOD SPIRITS.
[2017-12-13] MEDS: ALBUTEROL SULFATE 2.5 MG/3 ML NEBU NEB SCH ×3 (07:29→19:49)
[2017-12-13] MEDS: IPRATROPIUM BROMIDE 0.5 MG/2.5 ML NEBU NEB SCH ×3 (07:29→19:49)
[2017-12-13 07:45] LABS: BASOPHILS % (AUTO) 0.6 % (0.0-2.0); EOSINOPHILS # (AUTO) 0.2 K/uL (0.0-0.7); EOSINOPHILS % (AUTO) 7.2 % (0.0-7.0); HEMATOCRIT 29.9 % (31.2-41.9); HEMOGLOBIN 9.7 g/dL (10.9-14.3); LYMPHOCYTES # (AUTO) 1.7 K/uL (20.0-40.0); MEAN CORPUSCULAR HEMOGLOBIN 25.9 uug (24.7-32.8); MEAN CORPUSCULAR HGB CONC 33 g/dL (32.3-35.6); MEAN CORPUSCULAR VOLUME 79.7 fL (75.5-95.3); MONOCYTES # (AUTO) 0.3 K/uL (2.0-10.0); MONOCYTES % (AUTO) 11.7 % (0.0-11.0); NEUTROPHILS # (AUTO) 0.6 K/uL (1.8-8.9); NEUTROPHILS % (AUTO) 20.5 % (38.5-71.5); PLATELET COUNT (AUTO) 173 K/uL (179-408); RED BLOOD CELL COUNT(AUTO) 3.75 MIL/uL (3.63-4.92); WHITE BLOOD COUNT (AUTO) 2.9 K/uL (3.8-11.8)
[2017-12-13] MEDS: LEVETIRACETAM 500 MG TABLET PO SCH ×2 (08:21→20:22)
[2017-12-13] MEDS: FERROUS GLUCONATE 324 MG TABLET PO SCH (08:21)
[2017-12-13] MEDS: OXYCODONE HCL 20 MG TAB.SR.12H PO SCH ×2 (08:22→21:03)
[2017-12-13] MEDS: GABAPENTIN 300 MG CAPSULE PO SCH ×3 (08:22→17:00)
[2017-12-13 08:44] LABS: BILIRUBIN,TOTAL 0.2 mg/dL (0.2-1.0); CREATININE 0.9 mg/dL (0.6-1.3); POTASSIUM 4.1 mmol/L (3.5-5.1); TOTAL PROTEIN, SERUM 6.9 g/dL (6.4-8.2)
[2017-12-13 09:08] LABS: BAND % (MANUAL) 3 % (0-10); BASOPHILS % (MANUAL) 1 % (0-2); EOSINOPHILS % (MANUAL) 6 % (0-8); LYMPHOCYTES % (MANUAL) 62 % (20-40); MONOCYTES % (MANUAL) 14 % (2-10); NEUTROPHILS % (MANUAL) 14 % (42-75)
[2017-12-13 11:34] VITALS: BP 104/56
[2017-12-13 15:46] VITALS: BP 91/63
[2017-12-13] MEDS: WARFARIN SODIUM 3 MG TABLET PO SCH (17:46)
--- NOTE | 2017-12-13 18:38 | NUR ---
PATIENT IS CURRENTLY IN BED, HAS BEEN COOPERATIVE WITH CARE THROUGHOUT THE DAY. PATIENT AMBULATING INDEPENDENTLY WITHOUT ASSISTANCE. NO EVIDENCE OF DISTRESS THROUGHOUT THE SHIFT.
[2017-12-13 20:43] VITALS: BP 97/68
[2017-12-13] MEDS: ALPRAZOLAM 0.5 MG TABLET PO SCH (21:04)
[2017-12-14] MEDS: ALPRAZOLAM 0.5 MG TABLET PO PRN ×2 (03:35→14:52)
[2017-12-14 04:36] VITALS: BP 102/68
[2017-12-14] MEDS: PIPERACILLIN/TAZOBACTAM/D5W 50 ML IV SCH ×3 (04:38→16:33)
--- NOTE | 2017-12-14 05:00 | NUR ---
pt been dosing on and off.chronic pain ,on oxycontin. new iv placed,old iv infiltrated. continue with antibiotics, ambulates to bathroom without assistance.vss,afebrile, no significant changes overnight.
[2017-12-14] MEDS: PANTOPRAZOLE SODIUM 40 MG TABLET.DR PO SCH (06:26)
[2017-12-14] MEDS: LEVOTHYROXINE SODIUM 150 MCG TABLET PO SCH (06:26)
[2017-12-14 06:56] LABS: BILIRUBIN,TOTAL 0.2 mg/dL (0.2-1.0); CREATININE 1.1 mg/dL (0.6-1.3); PHOSPHOROUS 3.7 mg/dL (2.5-4.9); POTASSIUM 3.9 mmol/L (3.5-5.1); TOTAL PROTEIN, SERUM 6.8 g/dL (6.4-8.2)
[2017-12-14 06:59] LABS: BASOPHILS % (AUTO) 0.5 % (0.0-2.0); EOSINOPHILS # (AUTO) 0.3 K/uL (0.0-0.7); EOSINOPHILS % (AUTO) 10.1 % (0.0-7.0); HEMATOCRIT 27.6 % (31.2-41.9); LYMPHOCYTES # (AUTO) 1.7 K/uL (20.0-40.0); LYMPHOCYTES % (AUTO) 56.3 % (20.5-51.5); MEAN CORPUSCULAR HEMOGLOBIN 26.2 uug (24.7-32.8); MEAN CORPUSCULAR HGB CONC 33 g/dL (32.3-35.6); MEAN CORPUSCULAR VOLUME 79.9 fL (75.5-95.3); MONOCYTES # (AUTO) 0.3 K/uL (2.0-10.0); MONOCYTES % (AUTO) 10.8 % (0.0-11.0); NEUTROPHILS # (AUTO) 0.7 K/uL (1.8-8.9); NEUTROPHILS % (AUTO) 22.3 % (38.5-71.5); PLATELET COUNT (AUTO) 163 K/uL (179-408); RED BLOOD CELL COUNT(AUTO) 3.45 MIL/uL (3.63-4.92)
[2017-12-14] MEDS: ALBUTEROL SULFATE 2.5 MG/3 ML NEBU NEB SCH ×3 (07:48→19:30)
[2017-12-14] MEDS: IPRATROPIUM BROMIDE 0.5 MG/2.5 ML NEBU NEB SCH ×3 (07:48→19:30)
--- NOTE | 2017-12-14 07:49 | NUR ---
RECEIVED REPORT FROM BAGGAGEMASTER NURSE, PATIENT IS SLEEPING, NO EVIDENCE OF DISTRESS NOTED, BED IN LOW POSITION, SIDE RAILS UP X2. CALL LIGHT WITH IN REACH
[2017-12-14] MEDS: LEVETIRACETAM 500 MG TABLET PO SCH (08:13)
[2017-12-14] MEDS: OXYCODONE HCL 20 MG TAB.SR.12H PO SCH (08:13)
[2017-12-14] MEDS: FERROUS GLUCONATE 324 MG TABLET PO SCH (08:14)
[2017-12-14] MEDS: GABAPENTIN 300 MG CAPSULE PO SCH ×3 (08:15→16:06)
[2017-12-14 10:58] VITALS: BP 108/83
[2017-12-14] MEDS ORDERED: IPRA0.2S6 NEB (12:44)
[2017-12-14] MEDS ORDERED: ALPR0.5T PO (12:44)
[2017-12-14] MEDS ORDERED: ALBU2.5V7 NEB (12:44)
[2017-12-14] MEDS ORDERED: WARF3TAB29 PO (12:44)
[2017-12-14] MEDS ORDERED: GUAI5SYR PO (12:44)
[2017-12-14] MEDS ORDERED: Oxycodone Sr PO (12:44)
[2017-12-14] MEDS ORDERED: LEVE500T9 PO (12:44)
[2017-12-14] MEDS ORDERED: LACT1CAP59 PO (12:51)
[2017-12-14] MEDS ORDERED: PIPE3.3711 IV (12:51)
[2017-12-14 15:21] VITALS: BP 94/62
[2017-12-14] MEDS: WARFARIN SODIUM 3 MG TABLET PO SCH (17:17)
--- NOTE | 2017-12-14 17:28 | NUR ---
pt refused to take her legs picture,
--- NOTE | 2017-12-14 19:30 | NUR ---
RECEIVED PT AWAKE, ALERT ORIENTED. IV HEPLOCK. TO BE DISCHARGED WAITING FOR AMBULANCE.
--- NOTE | 2017-12-14 19:49 | NUR ---
pt refused tx. pt waiting to be discharged/picked up by ambulance for transfer. no s/s of respiratory distress noted.
[2017-12-14 20:13] VITALS: BP 110/63
--- NOTE | 2017-12-14 20:45 | NUR ---
PT WAS DISCHARGED VIA GURNEY BY AMBULANCE. IV HEPLOCK STILL IN PLACE TO BE NEEDED IN THE FACILITY.DISCHARGE PACKET GIVEN TO AMBULANCE TUNG LOPEZ). NO SIGNS OF DISTRESS TO THE PT. ALL NEEDS ARE MET.
== END 2017-12-14 20:45 | DRG 194 ==
LOC: ER 12:46 → TELE 15:42 → MED 12-12 12:25
PROVIDERS: ADMIT Internal Medicine; ATTEND Internal Medicine
DX: J18.9 Pneumonia, unspecified organism (principal); D68.2 Hereditary deficiency of other clotting factors; D61.818 Other pancytopenia; E44.0 Moderate protein-calorie malnutrition; D68.51 Activated protein C resistance; E83.42 Hypomagnesemia; E83.51 Hypocalcemia; I48.0 Paroxysmal atrial fibrillation; F13.20 Sedative, hypnotic or anxiolytic dependence, uncomplicated; E03.9 Hypothyroidism, unspecified; Z79.01 Long term (current) use of anticoagulants; Z86.718 Personal history of other venous thrombosis and embolism; Z79.899 Other long term (current) drug therapy; K21.9 Gastro-esophageal reflux disease without esophagitis; G40.909 Epilepsy, unspecified, not intractable, without status epilepticus; G89.4 Chronic pain syndrome; M17.0 Bilateral primary osteoarthritis of knee; M25.462 Effusion, left knee; M25.461 Effusion, right knee; F41.9 Anxiety disorder, unspecified; F32.9 Major depressive disorder, single episode, unspecified; G25.0 Essential tremor
CPT/HCPCS: 36415; 70030-TC; 71045; 83550; 83605; 83735; 84100; 84443; 85025; 85610; 87040; 87086; 87400; 93005; 93307; 94640; A4663; C1758; J0696; J1650; J1956; J2405; J2543; J3475; J3490; J3590; J7030; J7040; J7060

== ENCOUNTER 2018-01-21 16:32 | Inpatient (IN) | payer OTHER ==
[~2018-01-21] VITALS: Ht 185.4 cm; Wt 93.0 kg
[~2018-01-21 16:32] MED LIST changes: -ACET325T53 PO; +ALBU2.5V7 NEB; +ALPR1TAB7 PO; -FURO20TA4 PO; +GABA-534 PO; +GUAI5SYR PO; +IPRA0.2S6 NEB; +LACT10SO PO; +LACT1CAP59 PO; -LEVO150T PO; +LEVO150T8 PO; -ONDA4TAB5 PO; -OXYC5TAB3 PO; +PIPE3.3711 IV; -PIPE3.376 IV; -POTA10CA43 PO; -RXVAN XX; -WARF2TAB57 PO; +WARF3TAB29 PO; -ZOLP5TAB8 PO
--- NOTE | 2018-01-21 16:55 | NUR ---
Pt home medication list from previous visit reviewed with pt and pt's record updated accordingly.
[2018-01-21] MEDS ORDERED: VANCOMYCIN IV 1,000 MG in IV DEXTROSE 5% 250 ML IV ONE (17:45)
[2018-01-21] MEDS ORDERED: ONDANSETRON 4 MG/2 ML VIAL IV ONE (17:45)
[2018-01-21 18:05] LABS: BASOPHILS % (AUTO) 0.7 % (0.0-2.0); EOSINOPHILS # (AUTO) 0.3 K/uL (0.0-0.7); HEMOGLOBIN 11.1 g/dL (10.9-14.3); LYMPHOCYTES # (AUTO) 1.9 K/uL (20.0-40.0); LYMPHOCYTES % (AUTO) 31.8 % (20.5-51.5); MEAN CORPUSCULAR HEMOGLOBIN 26.7 uug (24.7-32.8); MEAN CORPUSCULAR HGB CONC 33 g/dL (32.3-35.6); MEAN CORPUSCULAR VOLUME 81.3 fL (75.5-95.3); MONOCYTES # (AUTO) 0.5 K/uL (2.0-10.0); MONOCYTES % (AUTO) 8.8 % (0.0-11.0); NEUTROPHILS # (AUTO) 3.2 K/uL (1.8-8.9); NEUTROPHILS % (AUTO) 53.7 % (38.5-71.5); PLATELET COUNT (AUTO) 300 K/uL (179-408); RED BLOOD CELL COUNT(AUTO) 4.18 MIL/uL (3.63-4.92); WHITE BLOOD COUNT (AUTO) 5.9 K/uL (3.8-11.8)
[2018-01-21] MEDS ORDERED: ONDANSETRON 4 MG/2 ML VIAL ONE ×2 (18:12→20:16)
[2018-01-21] MEDS ORDERED: VANCOMYCIN IV 200 ML ONE (18:12)
[2018-01-21 18:42] LABS: CREATININE 0.8 mg/dL (0.6-1.3); POTASSIUM 4.1 mmol/L (3.5-5.1)
[2018-01-21 18:55] LABS: BILIRUBIN,DIRECT 0.1 mg/dL (0.0-0.2); BILIRUBIN,TOTAL 0.3 mg/dL (0.2-1.0); TOTAL PROTEIN, SERUM 7.4 g/dL (6.4-8.2)
--- NOTE | 2018-01-21 19:23 | NUR ---
SBAR report given to steward/stewardess nightawake overnight monitor.
--- NOTE | 2018-01-21 19:25 | NUR ---
report received from day shift nurse. pt in bed eating, aaox3. in no acute distress, able to speak in clear and complete sentences. able to make needs known.
[2018-01-21 19:56] LABS: *BILIRUBIN,URIN NEGATIVE (NEGATIVE); *BLOOD, URINE Trace-intact (NEGATIVE); *CLARITY,URINE CLEAR (CLEAR); *COLOR,URINE YELLOW (YELLOW); *KETONES,URINE NEGATIVE (NEGATIVE); *PROTEIN,URINE NEGATIVE (NEGATIVE); *UROBILINOGEN,URINE 0.2 E.U./dl (NORMAL); LEUKOCYTE ESTERASE ,URINE NEGATIVE (NEGATIVE); NITRITE, URINE NEGATIVE (NEGATIVE); PH,URINE 8.5 (5.0-8.0); UGLUCOSE NEGATIVE (NEGATIVE)
[2018-01-21 20:01] LABS: BACTERIA,URINE MODERATE /HPF (NONE SEEN); SQUAMOUS EPITHELIAL CELL,UR FEW /HPF (NONE SEEN); WBC,URINE 0-3 /HPF (0-3)
[2018-01-21] MEDS ORDERED: ONDANSETRON IV *ER 4 MG/2 ML VIAL IV ONE (20:15)
--- NOTE | 2018-01-21 22:20 | NUR ---
epic paged per instructions
--- NOTE | 2018-01-21 23:30 | NUR ---
2nd floor called and report given to fady Cobb RN.
[2018-01-21] MEDS ORDERED: ACETAMINOPHEN 325 MG TABLET PO PRN (23:45)
[2018-01-21] MEDS ORDERED: HYDROCODONE/APAP 5-325MG TABLET PO PRN (23:45)
--- NOTE | 2018-01-21 23:50 | NUR ---
PT RECEIVED FROM ED, VIA [facility]. ORIENTED TO ROOM. A/OX4. ABLE TO MAKE NEEDS KNOWN. V/S STABLE. IN NO ACUTE DISTRESS. NO C/O PAIN AT THIS TIME. IV INTACT AND PATENT. ON RA, TOLERATING WELL. AFEBRILE. BILATERAL LOWER EXTREMITIES ELEVATED. HOB ELEVATED. SAFETY MEASURES IMPLEMENTED. BED ALARM SET. CALL LIGHT WITHIN REACH.
[2018-01-22 00:30] VITALS: BP 123/79
[2018-01-22] MEDS ORDERED: ALPRAZOLAM 0.25 MG TABLET PO SCH (01:15)
[2018-01-22] MEDS ORDERED: ALPRAZOLAM 0.5 MG TABLET ONE (01:18)
[2018-01-22 04:00] VITALS: BP 100/61
--- NOTE | 2018-01-22 05:45 | NUR ---
END OF SHIFT NOTES. PT SLEPT INTERMITTENTLY THROUGHOUT SHIFT. IN STABLE CONDITION. PT REQUESTED IV BE REMOVED, STATES IT IS IN UNCOMFORTABLE POSITION AND WOULD LIKE TO WAIT TILL MORNING TO REPLACE. TOLERATED RA WELL. AFEBRILE. ALL NEEDS ATTENDED. SAFETY MAINTAINED. CALL LIGHT REMAINS IN REACH.
[2018-01-22 06:57] LABS: BASOPHILS % (AUTO) 0.5 % (0.0-2.0); EOSINOPHILS # (AUTO) 0.3 K/uL (0.0-0.7); EOSINOPHILS % (AUTO) 4.9 % (0.0-7.0); HEMATOCRIT 32.6 % (31.2-41.9); HEMOGLOBIN 10.6 g/dL (10.9-14.3); LYMPHOCYTES # (AUTO) 2.4 K/uL (20.0-40.0); LYMPHOCYTES % (AUTO) 42.7 % (20.5-51.5); MEAN CORPUSCULAR HEMOGLOBIN 26.4 uug (24.7-32.8); MEAN CORPUSCULAR HGB CONC 32 g/dL (32.3-35.6); MEAN CORPUSCULAR VOLUME 81.5 fL (75.5-95.3); MONOCYTES # (AUTO) 0.5 K/uL (2.0-10.0); MONOCYTES % (AUTO) 9.1 % (0.0-11.0); NEUTROPHILS # (AUTO) 2.5 K/uL (1.8-8.9); NEUTROPHILS % (AUTO) 42.8 % (38.5-71.5); PLATELET COUNT (AUTO) 284 K/uL (179-408); WHITE BLOOD COUNT (AUTO) 5.7 K/uL (3.8-11.8)
[2018-01-22 07:01] LABS: CREATININE 0.8 mg/dL (0.6-1.3); MAGNESIUM 1.8 mg/dL (1.8-2.4); PHOSPHOROUS 4.1 mg/dL (2.5-4.9); POTASSIUM 4.1 mmol/L (3.5-5.1)
[2018-01-22] MEDS: LEVETIRACETAM 500 MG TABLET PO SCH ×2 (08:52→20:27)
[2018-01-22] MEDS: LEVOTHYROXINE SODIUM 150 MCG TABLET PO SCH (08:53)
[2018-01-22] MEDS: PANTOPRAZOLE SODIUM 40 MG TABLET.DR PO SCH (08:53)
[2018-01-22] MEDS: FERROUS GLUCONATE 324 MG TABLET PO SCH (08:53)
[2018-01-22] MEDS: OXYCODONE HCL 20 MG TAB.SR.12H PO SCH ×2 (10:46→20:28)
[2018-01-22 10:51] VITALS: BP 105/62
--- NOTE | 2018-01-22 11:41 | NUR ---
Clinical pharmacy note-Vancomycin dosing per pharmacy Subjective: To start Vancomycin dosing on this patient for cellulitis Objective: BUN 13 Scr 0.8 WBC 5.7 Temp 98.4 Ht 185.42 cm Wt 92.986 kg Assessment/Plan: Patient had Vancomycin in ER last night at 1820 Will continue Vancomycin as 1500mg IV every 12 hrs(first dose today 1300) and draw trough by 4th dose(not ordered yet) for expected trough around 14.15. Will monitor daily.
[2018-01-22] MEDS: PIPERACILLIN/TAZOBACTAM/D5W 3.375 G in PREMIXED 1 EACH IV SCH ×2 (12:18→17:26)
[2018-01-22] MEDS: VANCOMYCIN IV 1,500 MG in IV NORMAL SALINE 500 ML IV SCH (13:11)
[2018-01-22] MEDS ORDERED: ONDANSETRON 4 MG/2 ML VIAL IV PRN (14:15)
[2018-01-22] MEDS ORDERED: ONDA4TAB10 PO (15:10)
[2018-01-22] MEDS ORDERED: DOCU250C14 PO (15:10)
[2018-01-22] MEDS ORDERED: HYDR-3326 PO (15:10)
[2018-01-22] MEDS ORDERED: RXVAN XX (15:10)
[2018-01-22] MEDS ORDERED: ACET325T53 PO (15:10)
[2018-01-22] MEDS ORDERED: PIPE3.3714 IV (15:10)
[2018-01-22 15:16] VITALS: BP 110/70
[2018-01-22] MEDS: ALPRAZOLAM 0.5 MG TABLET PO PRN (16:45)
--- NOTE | 2018-01-22 18:04 | NUR ---
PT OBSERVED RESTING IN BED. PT PRIOR WAS ANXIOUS AND HAD NAUSEA. PT WAS GIVEN ZOFRAN AND XANAX. MEDICATION EFFECTIVE. PT RESTING, BED AT LOWEST LOCKED POSITION, IV INTACT, IV LOCATED ON THE RIGHT FOREARM 20 GAUGE, INTACT FUNCTIONAL CURRENTLY RECEIVING ZOSYN. PT SHOWS NO SIGNS OF RESPIRATORY DISTRESS AT THIS TIME. CONTINUE TO MONITOR.
--- NOTE | 2018-01-22 19:10 | NUR ---
PT RECEIVED AWAKE, ALERT, ORIENTED X4. PT IV INTACT AND PATENT. PT RESTING ON BED. CALL LIGHT WITHIN REACH. BED ALARM ON. PT SHOWS NO SIGNS OF DISTRESS.WILL CONITNUE TO MONITOR.
[2018-01-22 20:00] VITALS: BP 103/53
--- NOTE | 2018-01-22 20:15 | NUR ---
PT AGITATED. PT WANTS HER IV TO BE TAKEN OUT. PT AGGRESSIVE AND WHINING. CIGARETTE MAKING MACHINE OPERATOR AND CHARGE NURSE AWARE OF PT WANTS HER IV OUT. EXPLAINED TO THE PT THAT SHE STILL NEEDS IV SITE FOR HER MEDICATIONS AND INCASE OF EMERGENCY. PT AWARE OF IT AND DOESN'T WANT THE IV. SHE REFUSES TO HAVE HER IV MEDICATIONS. SHE WANTS IT TO BE TAKEN WHEN SHE WILL BE DISCHARGE TOMORROW IN THE FACILITY THAT SHE WILL BE DISCHARGED TO. PT ANXIOUS . PT COMPLAINING. PT WANTS HER ORAL MEDICATIONS FOR 2100 TO BE GIVEN AND REFUSES TO BE BOTHERED UNLESS HER TIME FOR XANAX MEDICATION WHICH WILL BE GIVEN 1245AM 01/23/18.WILL CONTINUE TO MONITOR.
[2018-01-22] MEDS ORDERED: ALPRAZOLAM 0.5 MG TABLET PO SCH (21:00)
[2018-01-22] MEDS ORDERED: DOCUSATE SODIUM 250 MG CAPSULE PO SCH (21:00)
--- NOTE | 2018-01-22 21:00 | NUR ---
PT IV WAS TAKEN OUT. CHARGE NURSE AND CAT HOOKER AWARE OF IT. GIVEN HER ORAL MEDICATIONS. PT TOLERATED IT WELL. PT STILL ANXIOUS. PT DOESN'T WANT HER IV MEDICATIONS AND DOESN'T WANT TO BE BOTHERED UNLESS ITS TIME FOR HER NEXT XANAX PRN MEDICATION WHICH WILL BE 1245 AM 01/23/18.WILL CONTINUE TO MONITOR.
--- NOTE | 2018-01-23 | NUR ---
TALKED WITH THE PT ABOUT HER IV MEDICATION TO BE GIVEN AT 12AM AND 1AM. PT AWARE OF THE ADVANTAGE OF HAVING IV ACCESS AND GETTING HER MEDICATIONS BUT STILL PT REFUSED TO HAVE IV ACCESS AND WANTS IT TO BE DONE IN THE MORNING. WILL CONTINUE TO MONITOR.
[2018-01-23] MEDS: ALPRAZOLAM 0.5 MG TABLET PO PRN ×2 (00:47→07:54)
[2018-01-23] MEDS: VANCOMYCIN IV 1,500 MG in IV NORMAL SALINE 500 ML IV SCH (01:00)
[2018-01-23] MEDS: PIPERACILLIN/TAZOBACTAM/D5W 3.375 G in PREMIXED 1 EACH IV SCH ×3 (05:36)
[2018-01-23 06:42] VITALS: BP 130/89
--- NOTE | 2018-01-23 06:43 | NUR ---
PT HAVE NEW IV ACCESS ON LEFT HAND 20G. PT ZOSYN FOR 0600H WAS GIVEN. PT STILL AGITATED AND WANTS XANAX. I NOTIFY THE DR THAT THE PT WANTS XANAX. STILL WAITING FOR A CALLBACK FROM THE DR DRY HOUSE WORKER. IV INTACT AND PATENT. PT SAID SHE'S IN PAIN AND WANTS PAIN MEDICATION. I OFFERED THE PRESCRIBED PAIN MEDICATION NORCO AND PT DOESN'T WANT IT . SHE SAID IT DOESN'T HELP SO SHE DON'T WANT IT. SAFETY AND COMFORT PROVIDED.WILL ENDORSE TO DAYSOKFT NURSE.
[2018-01-23] MEDS: FERROUS GLUCONATE 324 MG TABLET PO SCH (07:51)
[2018-01-23] MEDS: PANTOPRAZOLE SODIUM 40 MG TABLET.DR PO SCH (07:51)
[2018-01-23] MEDS: LEVOTHYROXINE SODIUM 150 MCG TABLET PO SCH (07:51)
[2018-01-23] MEDS: OXYCODONE HCL 20 MG TAB.SR.12H PO SCH (07:52)
[2018-01-23] MEDS: LEVETIRACETAM 500 MG TABLET PO SCH (07:52)
--- NOTE | 2018-01-23 08:00 | NUR ---
AWAKE ALERT NO SOB OR PAIN RESTING WELL IN BED WITH CALL LIGHT IN REACH JOHN GEN WEAK AND SWELLING ON BOTH FEET NO WOUND
--- NOTE | 2018-01-23 09:00 | NUR ---
D/C INSTRUCTION REGARDING WILL D/C TO SNF TO CONTINUE ANTIBIOTICS ORDER EXPLAINED TO PATIENT AND FAMILY WAS INFORM ,VERBALIZES UNDERSTAND AND SIGNS D/C SHEET
[2018-01-23 09:03] LABS: BASOPHILS % (AUTO) 0.6 % (0.0-2.0); EOSINOPHILS # (AUTO) 0.3 K/uL (0.0-0.7); EOSINOPHILS % (AUTO) 6.4 % (0.0-7.0); HEMATOCRIT 32.3 % (31.2-41.9); HEMOGLOBIN 10.5 g/dL (10.9-14.3); LYMPHOCYTES # (AUTO) 1.3 K/uL (20.0-40.0); LYMPHOCYTES % (AUTO) 27.4 % (20.5-51.5); MEAN CORPUSCULAR HEMOGLOBIN 26.5 uug (24.7-32.8); MEAN CORPUSCULAR HGB CONC 32 g/dL (32.3-35.6); MEAN CORPUSCULAR VOLUME 81.8 fL (75.5-95.3); MONOCYTES # (AUTO) 0.4 K/uL (2.0-10.0); MONOCYTES % (AUTO) 8.4 % (0.0-11.0); NEUTROPHILS # (AUTO) 2.8 K/uL (1.8-8.9); NEUTROPHILS % (AUTO) 57.2 % (38.5-71.5); PLATELET COUNT (AUTO) 236 K/uL (179-408); RED BLOOD CELL COUNT(AUTO) 3.95 MIL/uL (3.63-4.92); WHITE BLOOD COUNT (AUTO) 4.8 K/uL (3.8-11.8)
[2018-01-23 09:10] LABS: BILIRUBIN,TOTAL 0.3 mg/dL (0.2-1.0); CREATININE 0.9 mg/dL (0.6-1.3); MAGNESIUM 1.7 mg/dL (1.8-2.4); POTASSIUM 4.1 mmol/L (3.5-5.1); TOTAL PROTEIN, SERUM 6.8 g/dL (6.4-8.2)
--- NOTE | 2018-01-23 09:40 | NUR ---
D REPORT GIVEN TO NURSE AT [facility] VIA TEL
--- NOTE | 2018-01-23 10:45 | NUR ---
D/C TO SNF VIA AMBULANCE CONDITION STABLE NO ACUTE DISTRESS PAIN UNDER CONTROL
[2018-01-23 10:49] LABS: THYROID STIMULATING HORMONE 0.669 mIU/mL (0.358-3.740)
[2018-01-23 11:15] VITALS: BP 128/82
[2018-01-23] MEDS ORDERED: DOCUSATE SODIUM 100 MG CAPSULE PO SCH (21:00)
[2018-01-24] MEDS ORDERED: LEVOTHYROXINE SODIUM 150 MCG TABLET PO SCH (07:00)
[2018-01-24] MEDS ORDERED: PANTOPRAZOLE SODIUM 40 MG TABLET.DR PO SCH (07:00)
== END 2018-01-23 10:45 | DRG 603 ==
LOC: ER 16:33 → MED 23:42
PROVIDERS: ADMIT Internal Medicine; ATTEND Internal Medicine
DX: L03.115 Cellulitis of right lower limb (principal); D68.2 Hereditary deficiency of other clotting factors; E83.42 Hypomagnesemia; G62.9 Polyneuropathy, unspecified; I48.0 Paroxysmal atrial fibrillation; L03.116 Cellulitis of left lower limb; Z79.01 Long term (current) use of anticoagulants; Z86.718 Personal history of other venous thrombosis and embolism; G89.4 Chronic pain syndrome; E78.1 Pure hyperglyceridemia; G40.909 Epilepsy, unspecified, not intractable, without status epilepticus; E03.9 Hypothyroidism, unspecified; G25.0 Essential tremor; F41.9 Anxiety disorder, unspecified; F32.9 Major depressive disorder, single episode, unspecified; K21.9 Gastro-esophageal reflux disease without esophagitis; M17.0 Bilateral primary osteoarthritis of knee; Z87.01 Personal history of pneumonia (recurrent); F51.04 Psychophysiologic insomnia; D53.9 Nutritional anemia, unspecified; M23.206 Derangement of unspecified meniscus due to old tear or injury, right knee; M25.462 Effusion, left knee; M25.461 Effusion, right knee
CPT/HCPCS: 36415; 71045; 83735; 84100; 84443; 85025; 85610; 85730; 87086; A4663; J2405; J2543; J3370; J3490; J7040

== ENCOUNTER 2018-05-14 20:03 | Inpatient (IN) | payer OTHER ==
[~2018-05-14] VITALS: Ht 185.4 cm; Wt 86.6 kg
[~2018-05-14 20:03] MED LIST changes: +ACET325T53 PO; -ALBU2.5V7 NEB; +DOCU250C14 PO; -GABA-534 PO; -GUAI5SYR PO; -IPRA0.2S6 NEB; -LACT10SO PO; -MAGN400O6 PO; +ONDA4TAB10 PO; -PIPE3.3711 IV; +PIPE3.3714 IV; +RXVAN XX; -WARF3TAB29 PO
[2018-05-14] MEDS ORDERED: HYDROCODONE/APAP 5-325MG TABLET PO ONE (21:15)
[2018-05-14 21:55] LABS: *BILIRUBIN,URIN NEGATIVE (NEGATIVE); *BLOOD, URINE NEGATIVE (NEGATIVE); *CLARITY,URINE CLEAR (CLEAR); *COLOR,URINE YELLOW (YELLOW); *KETONES,URINE NEGATIVE (NEGATIVE); *PROTEIN,URINE NEGATIVE (NEGATIVE); *UROBILINOGEN,URINE 0.2 E.U./dl (NORMAL); LEUKOCYTE ESTERASE ,URINE NEGATIVE (NEGATIVE); NITRITE, URINE NEGATIVE (NEGATIVE); PH,URINE 7.5 (5.0-8.0); UGLUCOSE NEGATIVE (NEGATIVE)
[2018-05-14 22:04] LABS: SQUAMOUS EPITHELIAL CELL,UR MODERATE /HPF (NONE SEEN); WBC,URINE 0-3 /HPF (0-3)
[2018-05-14] MEDS ORDERED: HYDROCODONE/APAP 5-325MG TABLET ONE (22:16)
[2018-05-14 22:22] LABS: BASOPHILS % (AUTO) 0.5 % (0.0-2.0); EOSINOPHILS # (AUTO) 0.2 K/uL (0.0-0.7); EOSINOPHILS % (AUTO) 2.8 % (0.0-7.0); HEMATOCRIT 32.8 % (31.2-41.9); LYMPHOCYTES # (AUTO) 2.1 K/uL (20.0-40.0); LYMPHOCYTES % (AUTO) 25.8 % (20.5-51.5); MEAN CORPUSCULAR HEMOGLOBIN 28.3 uug (24.7-32.8); MEAN CORPUSCULAR HGB CONC 34 g/dL (32.3-35.6); MEAN CORPUSCULAR VOLUME 84.3 fL (75.5-95.3); MONOCYTES # (AUTO) 0.6 K/uL (2.0-10.0); MONOCYTES % (AUTO) 6.7 % (0.0-11.0); NEUTROPHILS # (AUTO) 5.3 K/uL (1.8-8.9); NEUTROPHILS % (AUTO) 64.2 % (38.5-71.5); PLATELET COUNT (AUTO) 298 K/uL (179-408); RED BLOOD CELL COUNT(AUTO) 3.89 MIL/uL (3.63-4.92); WHITE BLOOD COUNT (AUTO) 8.2 K/uL (3.8-11.8)
[2018-05-14] MEDS ORDERED: MORPHINE SULFATE 4 MG/1 ML DISP.SYRIN IV ONE (22:30)
[2018-05-14] MEDS ORDERED: ONDANSETRON 4 MG/2 ML VIAL IV ONE (22:30)
[2018-05-14] MEDS ORDERED: diphenhydrAMINE 50 MG/1 ML VIAL ONE (22:33)
[2018-05-14] MEDS ORDERED: ONDANSETRON 4 MG/2 ML VIAL ONE (22:33)
[2018-05-14] MEDS ORDERED: MORPHINE SULFATE 4 MG/1 ML DISP.SYRIN ONE (22:33)
[2018-05-14 22:35] LABS: CREATININE 0.9 mg/dL (0.6-1.3)
[2018-05-14 22:40] LABS: POTASSIUM 4.4 mmol/L (3.5-5.1)
[2018-05-14 22:42] LABS: BILIRUBIN,DIRECT 0.1 mg/dL (0.0-0.2); BILIRUBIN,TOTAL 0.4 mg/dL (0.1-1.0)
[2018-05-14 22:43] LABS: TOTAL PROTEIN, SERUM 7.3 g/dL (6.4-8.2)
[2018-05-14] MEDS ORDERED: diphenhydrAMINE 50 MG/1 ML VIAL IV ONE (23:00)
[2018-05-14] MEDS ORDERED: VANCOMYCIN IV 1,000 MG in IV DEXTROSE 5% 250 ML IV ONE (23:15)
[2018-05-14] MEDS ORDERED: MAGNESIUM HYDROXIDE 30 ML LIQUID UDC PO PRN (23:15)
[2018-05-14] MEDS ORDERED: Z GUARD REMEDY PASTE 57 GM TUBE TOP PRN (23:15)
[2018-05-14] MEDS ORDERED: HYDROCODONE/APAP 5-325MG TABLET PO PRN (23:15)
[2018-05-14] MEDS ORDERED: ACETAMINOPHEN 325 MG TABLET PO PRN (23:15)
[2018-05-14] MEDS ORDERED: VANCOMYCIN IV 200 ML ONE (23:23)
[2018-05-14] MEDS ORDERED: CLINDAMYCIN PHOSPHATE IV 900 MG in IV DEXTROSE 5% 100 ML IV ONE (23:30)
[2018-05-14] MEDS ORDERED: CLINDAMYCIN PHOSPHATE 900 MG/6 ML VIAL ONE (23:46)
[2018-05-15] MEDS ORDERED: OXYCODONE ER (00:24)
[2018-05-15] MEDS ORDERED: LEVO100T PO (00:24)
[2018-05-15] MEDS ORDERED: LEVE1000 PO (00:24)
[2018-05-15] MEDS ORDERED: WARF-68 PO (00:30)
[2018-05-15] MEDS ORDERED: WARF3TAB59 PO (00:30)
[2018-05-15] MEDS ORDERED: MORPHINE SULFATE 4 MG/1 ML DISP.SYRIN ONE (02:27)
[2018-05-15] MEDS ORDERED: diphenhydrAMINE 50 MG/1 ML VIAL IV ONE (02:30)
[2018-05-15] MEDS ORDERED: MORPHINE SULFATE 4 MG/1 ML DISP.SYRIN IV ONE (02:30)
[2018-05-15] MEDS ORDERED: diphenhydrAMINE 50 MG/1 ML VIAL ONE (02:50)
[2018-05-15 06:18] VITALS: BP 136/92
[2018-05-15] MEDS ORDERED: PIPERACILLIN/TAZOBACTAM/D5W 50 ML IV ONE (06:34)
[2018-05-15] MEDS: PIPERACILLIN/TAZOBACTAM/D5W 50 ML IV SCH ×3 (06:53→17:34)
[2018-05-15 06:56] LABS: BASOPHILS % (AUTO) 0.4 % (0.0-2.0); EOSINOPHILS # (AUTO) 0.2 K/uL (0.0-0.7); EOSINOPHILS % (AUTO) 2.6 % (0.0-7.0); HEMATOCRIT 29.6 % (31.2-41.9); HEMOGLOBIN 9.9 g/dL (10.9-14.3); LYMPHOCYTES # (AUTO) 2.1 K/uL (20.0-40.0); LYMPHOCYTES % (AUTO) 26.1 % (20.5-51.5); MEAN CORPUSCULAR HEMOGLOBIN 28.3 uug (24.7-32.8); MEAN CORPUSCULAR HGB CONC 34 g/dL (32.3-35.6); MEAN CORPUSCULAR VOLUME 84.3 fL (75.5-95.3); MONOCYTES # (AUTO) 0.6 K/uL (2.0-10.0); NEUTROPHILS % (AUTO) 63.9 % (38.5-71.5); PLATELET COUNT (AUTO) 280 K/uL (179-408); RED BLOOD CELL COUNT(AUTO) 3.51 MIL/uL (3.63-4.92); WHITE BLOOD COUNT (AUTO) 7.9 K/uL (3.8-11.8)
[2018-05-15 07:09] LABS: THYROID STIMULATING HORMONE 3.295 mIU/mL (0.358-3.740)
[2018-05-15 07:13] LABS: CREATININE 0.9 mg/dL (0.6-1.3); MAGNESIUM 1.6 mg/dL (1.8-2.4); PHOSPHOROUS 4.4 mg/dL (2.5-4.9); POTASSIUM 3.8 mmol/L (3.5-5.1)
[2018-05-15] MEDS: HYDROCODONE/APAP 10-325 MG TABLET PO PRN ×2 (08:38→21:22)
[2018-05-15] MEDS ORDERED: VANCOMYCIN IV 1,250 MG in IV DEXTROSE 5% 500 ML IV SCH (09:00)
[2018-05-15] MEDS ORDERED: MAGNESIUM OXIDE 400 MG TABLET PO ONE ×2 (09:30→12:00)
[2018-05-15] MEDS: ONDANSETRON 4 MG/2 ML VIAL IV PRN ×2 (10:28→22:45)
[2018-05-15 11:16] VITALS: BP 91/60
[2018-05-15] MEDS ORDERED: ALPRAZOLAM 0.5 MG TABLET PO PRN (11:45)
[2018-05-15] MEDS ORDERED: WARF2.5T85 PO ×2 (14:05→14:08)
[2018-05-15 14:59] VITALS: BP 107/70
[2018-05-15] MEDS ORDERED: OXYCODONE HCL 20 MG TAB.SR.12H PO SCH (16:14)
[2018-05-15] MEDS: LEVETIRACETAM 500 MG TABLET PO SCH (16:34)
[2018-05-15] MEDS: WARFARIN SODIUM 2.5 MG TABLET PO SCH (16:35)
[2018-05-15 19:00] VITALS: BP 113/69
[2018-05-15] MEDS: VANCOMYCIN IV 1,250 MG in IV DEXTROSE 5% 500 ML IV SCH (22:45)
[2018-05-16] MEDS: PIPERACILLIN/TAZOBACTAM/D5W 50 ML IV SCH ×4 (01:07→16:47)
[2018-05-16] MEDS ORDERED: METOCLOPRAMIDE HCL 10 MG/2 ML VIAL IV PRN (03:30)
[2018-05-16] MEDS ORDERED: OXYCODONE HCL 20 MG TAB.SR.12H PO SCH ×2 (04:00)
[2018-05-16 06:16] VITALS: BP 137/87
[2018-05-16] MEDS ORDERED: LEVOTHYROXINE SODIUM 100 MCG TABLET PO SCH (07:00)
[2018-05-16 08:12] LABS: MAGNESIUM 1.9 mg/dL (1.8-2.4); POTASSIUM 3.9 mmol/L (3.5-5.1)
[2018-05-16] MEDS ORDERED: DOCUSATE SODIUM 250 MG CAPSULE PO SCH (09:00)
[2018-05-16] MEDS: LEVETIRACETAM 500 MG TABLET PO SCH (09:48)
[2018-05-16 11:40] VITALS: BP 111/69
[2018-05-16] MEDS: VANCOMYCIN IV 1,250 MG in IV DEXTROSE 5% 500 ML IV SCH (11:48)
[2018-05-16] MEDS: HYDROCODONE/APAP 10-325 MG TABLET PO PRN (13:25)
[2018-05-16] MEDS ORDERED: MUPIROCIN 2% OINT 22 GM TUBE NS SCH (15:00)
[2018-05-16 15:28] VITALS: BP 109/65
[2018-05-16] MEDS: WARFARIN SODIUM 2.5 MG TABLET PO SCH (16:53)
[2018-05-16] MEDS ORDERED: SULF1TAB48 PO (17:31)
[2018-05-16] MEDS ORDERED: DOXY100T2 PO (17:31)
[2018-05-16] MEDS ORDERED: ALPRAZOLAM 0.5 MG TABLET PO ONE (18:30)
[2018-05-16] MEDS ORDERED: OXYCODONE HCL 20 MG TAB.SR.12H PO STA (18:31)
[2018-05-16 19:00] VITALS: BP 120/63
[2018-05-16] MEDS ORDERED: LACTOBACILLUS RHAMNOSUS GG 1 EACH CAPSULE PO SCH (21:00)
[2018-05-21] MEDS ORDERED: WARFARIN SODIUM 2.5 MG TABLET PO SCH (17:00)
== END 2018-05-16 20:30 | disposition home or self-care (01) | DRG 603 ==
LOC: ER 20:06 → MED 05-15 00:20
PROVIDERS: ADMIT Nurse Practitioner Acute Care; ATTEND Nurse Practitioner Acute Care
DX: L03.115 Cellulitis of right lower limb (principal); D68.51 Activated protein C resistance; G89.4 Chronic pain syndrome; F41.9 Anxiety disorder, unspecified; G40.909 Epilepsy, unspecified, not intractable, without status epilepticus; D63.8 Anemia in other chronic diseases classified elsewhere; E03.9 Hypothyroidism, unspecified; K21.9 Gastro-esophageal reflux disease without esophagitis; Z79.01 Long term (current) use of anticoagulants; Z79.899 Other long term (current) drug therapy; L03.116 Cellulitis of left lower limb; G62.9 Polyneuropathy, unspecified; G43.909 Migraine, unspecified, not intractable, without status migrainosus; F11.10 Opioid abuse, uncomplicated; G47.00 Insomnia, unspecified; Z22.322 Carrier or suspected carrier of Methicillin resistant Staphylococcus aureus
CPT/HCPCS: 36415; 71045; 83735; 84100; 84443; 85025; 85610; 93005; A4663; J1200; J2270; J2405; J2543; J2765; J3370; J3490; J7030; J7050; J7060